=== PATIENT | male | born 1985 | race Caucasian/White ===

== ENCOUNTER 2023-01-10 20:24 | Emergency (ER) | payer OTHER ==
[~2023-01-10] VITALS: Ht 177.8 cm; Wt 74.8 kg
== END 2023-01-10 21:47 | disposition home or self-care (01) ==
LOC: ER 20:25
DX: J02.8 Acute pharyngitis due to other specified organisms (principal); B96.89 Other specified bacterial agents as the cause of diseases classified elsewhere